=== PATIENT | female | born 1995 ===

== ENCOUNTER 2018-06-19 14:16 | Emergency (ER) | payer OTHER ==
[2018-06-19 15:14] VITALS: BP 118/63
--- NOTE | 2018-06-19 15:23 | UC ---
Lower Extremity/Ankle HPI - HPI Summary HPI Summary: 23 y/o female presents to the urgent care c/o left ankle pain w/ swelling s/p twisting her foot after stepping at the edge of a pallet. Pt states pain is 5/ 10. she is able to bear weight w/ limping. She states only swelling on her LF lateral malleolus. Pt has not taking anything for pain. Pt denies numbness or tingling sensation over the LF foot of ankle. Denies calf pain, SOB, chest pain , abdominal pain, N/V/D. LMP: 06/17/2018 still w/ her period and has IUD. - History of Current Complaint Chief Complaint: UCLowerExtremity Stated Complaint: WC LEFT ANKLE INJURY Time Seen by Provider: 06/19/18 15:10 Hx Obtained From: Patient Hx Last Menstrual Period: iud ?: No - 06/17/2018 Onset/Duration: Sudden Onset, Lasting Hours - 2hrs, Still Present Severity Initially: Moderate Severity Currently: Moderate Pain Intensity: 5 Pain Scale Used: 0-10 Numeric Aggravating Factor(s): Standing, Ambulation Alleviating Factor(s): Rest, Elevation, Ice Able to Bear Weight: Yes - Risk Factors Gout Risk Factors: Negative DVT Risk Factors: Negative Septic Arthritis Risk Factor: Negative - Allergies/Home Medications Allergies/Adverse Reactions: Allergies Allergy/AdvReac Type Severity Reaction Status Date / Time adhesive tape Allergy Rash Verified 06/19/18 15:05 Home Medications: Home Medications Insulin Lispro [Humalog] 1 udc SC DAILY 06/19/18 [History Confirmed 06/19/18] PMH/Surg Hx/FS Hx/Imm Hx Previously Healthy: Yes Endocrine History: Diabetes - Type I - Surgical History Surgical History: None - Family History Known Family History: Positive: Cardiac Disease, Hypertension, Diabetes - Social History Occupation: Employed Full-time Lives: With Family Alcohol Use: Weekly Substance Use Type: None Smoking Status (MU): Never Smoked Tobacco Review of Systems Constitutional: Negative Skin: Other - Left ankle swelling around lateral malleolus Eyes: Negative ENT: Negative Respiratory: Negative Cardiovascular: Negative Gastrointestinal: Negative Genitourinary: Negative Motor: Negative Neurovascular: Negative Musculoskeletal: Decreased ROM - left ankle s/p injury, Other: - left ankle pain s/p injury Neurological: Negative Psychological: Negative Is Patient Immunocompromised?: No All Other Systems Reviewed And Are Negative: Yes Physical Exam - Summary Physical Exam Summary: Vital Signs Reviewed: Yes General: well developed, well nourished female, sitting in the examining table w /o any apparent distress Eyes: Positive: Conjunctiva Clear - PERRLA, EOMI, ENT: Positive: Normal ENT inspection, Hearing grossly normal, Pharynx normal, TMs normal Neck: Positive: Supple, Nontender, No Lymphadenopathy Respiratory: Positive: Chest non-tender, Lungs clear, Normal breath sounds, No respiratory distress Cardiovascular: Positive: RRR, No Murmur, Pulses Normal, Brisk Capillary Refill Abdomen Description: Positive: Nontender, No Organomegaly, Soft. Negative: CVA Tenderness (R), CVA Tenderness (L) Bowel Sounds: Positive: Present Musculoskeletal: - Left Ankle: Pt is able to bear weight and ambulate w/ limping. The L ankle is without obvious asymmetry or deformity when compared to the R ankle. Decreased ROM due to pain. Moderate swelling at the lateral malleolus and around tallus bone, with tenderness to palpation. No ecchymosis or bruising observed. No tenderness to palpation over the medial malleolus , no swelling observed. Talar tilt test is negative for ligament laxity to valgus or varus stress. Negative anterior drawer. Peroneal nerve is intact with strong eversion and plantar flexion. Positive sensation over the Rt foot and Rt ankle, positive pulses, capillary refill intact Neurological Exam: Normal Psychological Exam: Normal Skin: warm and dry Triage Information Reviewed: Yes Vital Signs: Initial Vital Signs Temp 98.3 F 06/19/18 15:08 Pulse 70 06/19/18 15:08 Resp 18 06/19/18 15:08 BP 118/63 06/19/18 15:08 Pulse Ox 100 06/19/18 15:08 Lower Extremity Course/Dx - Course Course Of Treatment: 23 y/o female presents to the urgent care c/o left ankle pain w/ swelling s/p twisting her foot after stepping at the edge of a pallet. Pt states pain is 5/10. she is able to bear weight w/ limping. She states only swelling on her LF lateral malleolus. Pt has not taking anything for pain. Pt denies numbness or tingling sensation over the LF foot of ankle. Denies calf pain, SOB, chest pain, abdominal pain, N/V/D. LMP: 06/17/2018 still w/ her period and has IUD.Hx obtained. Rt ankle X-ray ordered, Impression: No Soft tissue swelling, no acute fracture. Pt most likely with a RT ankle Sprain. Pt immobilized with gel ankle splint to ,advised to use the crutches she has at home to avoid weight bearing, Rx Ibuprofen PO to decrease swelling and pain. Pt advised RICE, take Ibuprofen PO for pain and to f/u with PCP on orthopedic Dr Neville in 1 week if not improvement of symptoms for further treatment. Pt understood and agreed and left the clinic ambulating. - Differential Dx/Diagnosis Differential Diagnosis/HQI/PQRI: Contusion, Fracture (Closed), Sprain, Strain, Tendonitis Provider Diagnoses: 1- Left ankle pain s/p injury. 2- Left ankle sprain s/p injury Discharge - Sign-Out/Discharge Documenting (check all that apply): Patient Departure - D/c home - Discharge Plan Condition: Stable Disposition: HOME Prescriptions: Ibuprofen TAB* [Motrin TAB* 600 MG] 600 mg PO Q6H PRN #30 tab PRN Reason: Pain Patient Education Materials: Ankle Sprain (ED) Forms: *Work Release Referrals: [facility] [Outside] - 1 Week Paul Neville MD [Medical Doctor] - 1 Week Additional Instructions: 1-Please take medications as directed to alleviate pain and swelling. 2-Please apply ice, keep your ankle immobilized with the splint. Avoid weight bearing using your crutches 3- Please f/u with Orthopedic Dr Neville or your PCP in 1 week is not improvement of symptoms for further evaluation and treatment. - Billing Disposition and Condition Condition: STABLE Disposition: Home
[2018-06-19] MEDS ORDERED: Ibuprofen TAB* 600 MG PO ONE (15:28)
--- NOTE | 2018-06-19 15:58 | RAD ---
Indication: Left ankle pain. 3 views of left ankle demonstrates no fracture. Ankle mortise is intact. No other bone or joint abnormality is identified. IMPRESSION: No fracture of left ankle is noted.
== END 2018-06-19 16:20 | disposition home or self-care (01) ==
LOC: UCCORT 14:16
DX: S93.402A Sprain of unspecified ligament of left ankle, initial encounter (principal); Z91.048 Other nonmedicinal substance allergy status; E10.9 Type 1 diabetes mellitus without complications; Z79.4 Long term (current) use of insulin; X50.1XXA Overexertion from prolonged static or awkward postures, initial encounter; Y93.89 Activity, other specified; Y92.9 Unspecified place or not applicable
CPT/HCPCS: 99203; A9270-GY; G0463